=== PATIENT | male | born 2000 | race Caucasian/White ===

== ENCOUNTER 2019-01-09 21:18 | Emergency (ER) | payer MEDICAID, OTHER ==
[2019-01-10] MEDS: IBUPROFEN 600 MG TAB PO (04:01)
[2019-01-10] MEDS: ACETAMINOPHEN 325 MG TAB PO (04:02)
[2019-01-10] MEDS: OSELTAMIVIR 75 MG CAP PO (05:41)
== END 2019-01-10 05:45 | disposition home or self-care (01) ==
LOC: FTE 21:18
DX: J10.1 Influenza due to other identified influenza virus with other respiratory manifestations (principal)
CPT/HCPCS: 87400; 99283